=== PATIENT | female | born 1945 | race Caucasian/White ===

== ENCOUNTER 2017-03-26 18:57 | Inpatient (IN) | payer OTHER ==
[~2017-03-26] VITALS: Ht 162.6 cm; Wt 62.6 kg
--- NOTE | 2017-03-26 19:10 | NUR ---
[id number] FROM HOME: HYPERGLYCEMIA, GENERALIZED WEAKNESS, FLU SYMPTOMS, NAD NOTED, VSS, RESP EVEN AND UNLABORED. PT PUT ON MONITOR AND HOSPITAL GOWN. WAITING FOR MD COLIN.
[2017-03-26] MEDS ORDERED: FAMOTIDINE/PF INJ 20 MG/2 ML VIAL IV ONE ×2 (19:30→20:08)
[2017-03-26] MEDS ORDERED: ONDANSETRON HCL/PF 4 MG/2 ML VIAL IV ONE (19:30)
[2017-03-26] MEDS ORDERED: IV NS 0.9% 1,000 ML BAG IV ONE ×3 (19:30→22:00)
[2017-03-26 19:57] LABS: BASOPHILS % (AUTO) 0.2 % (0.0-2.0); EOSINOPHILS % (AUTO) 0.1 % (0.0-6.0); HEMATOCRIT 37 % (33-45); HEMOGLOBIN 12.6 g/dL (11.5-14.8); LYMPHOCYTES # (AUTO) 0.4 /CMM (0.8-4.8); LYMPHOCYTES % (AUTO) 4.1 % (20.0-44.0); MEAN CORPUSCULAR HEMOGLOBIN 29 PG (26.0-33.0); MEAN CORPUSCULAR HGB CONC 34 g/dl (31.0-36.0); MEAN CORPUSCULAR VOLUME 86 fL (82-100); MONOCYTES # (AUTO) 0.3 /CMM (0.1-1.30); MONOCYTES % (AUTO) 3.5 % (2.0-12.0); NEUTROPHILS # (AUTO) 8.9 /CMM (1.8-8.9); NEUTROPHILS % (AUTO) 92.1 % (43.0-81.0); PLATELET COUNT (AUTO) 185 /CMM (150-450); RDW COEFFICIENT OF VARIATION 13.5 (11.5-15.0); WHITE BLOOD COUNT (AUTO) 9.6 K/uL (4.3-11.0)
[2017-03-26] MEDS ORDERED: ONDANSETRON HCL/PF 4 MG/2 ML VIAL ONE (20:08)
[2017-03-26 20:20] LABS: ALANINE AMINOTRANSFERASE 23 U/L (12-78); ALBUMIN 2.7 g/dL (3.4-5.0); ALKALINE PHOSPHATASE 181 U/L (46-116); ASPARTATE AMINOTRANSFERASE 43 U/L (15-37); BILIRUBIN,DIRECT 0.3 mg/dL (0.0-0.2); BILIRUBIN,TOTAL 0.7 mg/dL (0.2-1.0); CALCIUM, SERUM 9.3 mg/dL (8.5-10.1); CARBON DIOXIDE 17 mmol/L (21-32); CHLORIDE 101 mmol/L (98-107); CREATININE 0.8 mg/dL (0.6-1.3); LIPASE 79 U/L (73-393); POTASSIUM 3.3 mmol/L (3.5-5.1); SODIUM SERUM 134 mmol/L (136-145); TOTAL PROTEIN, SERUM 6.9 g/dL (6.4-8.2); UREA NITROGEN, BLOOD 17 mg/dL (7-18)
[2017-03-26 20:34] LABS: TROPONIN I 1.904 ng/mL (0.00-0.056)
[2017-03-26 20:35] LABS: GLUCOSE 363 mg/dL (74-106)
[2017-03-26] MEDS ORDERED: ASPIRIN 325 MG TABLET PO ONE (21:00)
[2017-03-26] MEDS ORDERED: INSULIN REGULAR, HUMAN 100 UNIT/ML 10 ML VIAL SQ ONE (21:00)
[2017-03-26 21:08] LABS: APPEARANCE,URINE Slightly Cloudy (CLEAR); BILIRUBIN,URINE Negative (NEGATIVE); BLOOD, URINE Large Ery/uL (NEGATIVE); COLOR,URINE Yellow (YELLOW); KETONES,URINE >=160 (NEGATIVE); LEUKOCYTE ESTERASE ,URINE Trace (NEGATIVE); NITRITE, URINE Positive (NEGATIVE); PH,URINE 5.5 (5.0-8.0); PROTEIN,URINE 100 mg/dl (NEGATIVE); UGLUCOSE 500 MG/DL mg/dL (NEGATIVE)
[2017-03-26] MEDS ORDERED: INSULIN REGULAR, HUMAN 100 UNIT/ML 10 ML VIAL ONE (21:11)
[2017-03-26] MEDS ORDERED: POTASSIUM CHLORIDE 20 MEQ TAB.PRT.SR PO ONE ×2 (21:11→21:30)
[2017-03-26] MEDS ORDERED: ASPIRIN 325 MG TABLET ONE (21:11)
[2017-03-26] MEDS ORDERED: CEFTRIAXONE 1GM BAG (ER ONLY) 1 GM/50 ML PIGGYBACK IV ONE (21:30)
[2017-03-26 21:42] LABS: BACTERIA,URINE 1+ /HPF (None Seen); SQUAMOUS EPITHELIAL CELL,UR Few /HPF (None Seen); WBC,URINE TOO NUMEROUS TO COUN /HPF (0-3)
[2017-03-26] MEDS ORDERED: IOHEXOL-350 100 ML VIAL IV ONE (21:44)
[2017-03-26] MEDS ORDERED: IV NS 0.9% 250 ML IV ONE (21:44)
--- NOTE | 2017-03-26 21:50 | NUR ---
PATIENT DX N STEMI, ASSIGNED TO TELE 306-2, ACCEPTED BY DR SARAY HOWARD
[2017-03-26] MEDS ORDERED: ACETAMINOPHEN 325 MG TABLET PO PRN (22:00)
[2017-03-26] MEDS ORDERED: MORPHINE SULFATE INJ 2 MG/ML DISP.SYRIN IV PRN (22:00)
[2017-03-26] MEDS ORDERED: ONDANSETRON HCL/PF 4 MG/2 ML VIAL IVP PRN (22:00)
[2017-03-26] MEDS ORDERED: LORAZEPAM INJ 2 MG/ML VIAL IVP PRN (22:00)
[2017-03-26] MEDS ORDERED: INSULIN REGULAR, HUMAN 100 UNIT in IV NS 0.9% 99 ML IV PRN ×2 (22:00)
[2017-03-26 22:32] LABS: ABG BASE EXCESS -7.2 mmol/L; ABG OXYGEN SATURATION 95.2 % (92.0-98.5); ABG PCO2 30.3 mmHg (35.0-45.0); ABG PH 7.367 (7.350-7.450); AaDO2 32.4 mmHg; COHb 0.4 % (0.5-1.5); MetHb 0.3 % (0.0-1.5); O2Hb 94.5 % (94.0-97.0); SITE, ABG Right Radial; VENT MODE, BG ROOM AIR
--- NOTE | 2017-03-26 23:00 | NUR ---
CALLED KRIS FROM ICU, SHE'S UNABLE TO RECEIVED REPORT AT THIS MOMENT. WILL CALL IN 15 MINS.
[2017-03-27] VITALS (23 sets, daily range): BP systolic 93–168; BP diastolic 47–98
--- NOTE | 2017-03-27 | NUR ---
ASSUMED ADMISSION CARE AT THIS TIME. REPORT GIVEN TO KRIS/BRETT.
[2017-03-27] MEDS: ASPIRIN 81 MG TAB.CHEW PO SCH ×2 (01:00→09:19)
[2017-03-27] MEDS: ATORVASTATIN 10 MG TABLET PO SCH ×2 (01:00→22:53)
[2017-03-27 01:58] LABS: CALCIUM, SERUM 8.6 mg/dL (8.5-10.1); CARBON DIOXIDE 19 mmol/L (21-32); CHLORIDE 108 mmol/L (98-107); CREATININE 0.8 mg/dL (0.6-1.3); GLUCOSE 279 mg/dL (74-106); POTASSIUM 4.3 mmol/L (3.5-5.1); SODIUM SERUM 140 mmol/L (136-145); UREA NITROGEN, BLOOD 17 mg/dL (7-18)
[2017-03-27] MEDS ORDERED: LEVOFLOXACIN 750 MG /D5W 150ML 150 ML IV ONE (02:13)
[2017-03-27] MEDS: LEVOFLOXACIN 750 MG /D5W 150ML 150 ML IV SCH ×2 (02:49→22:51)
[2017-03-27] MEDS ORDERED: DEXTROSE 50%-WATER 50 ML DISP.SYRIN IV PRN ×2 (03:00→13:00)
--- NOTE | 2017-03-27 05:30 | NUR ---
SANITATION SUPERVISOR - LAB PHONED W/CRITICAL TROPONIN LEVEL. TROP AT 2.893 & BS AT #333. ADMISSION TROP LEVEL WAS #1.9 & #364 BS. PT.WAS COVERED W/AGGRESSIVE SCALE INSULIN COVERAGE (16 UNITS/SQ). PT.USED BSC. A&OX3, S[place] SPEAKING,BUT UNDERSTANDS LITTLE [place]. NURSE STAFF [facility] USED FOR MOST INSTRUCTIONS. VSS. AFEBRILE. PT.DENIES ANY PAIN AT PRESENT. ORDERS REC'D FROM DR. SO. LOVENOX-PHARMACY DOSING ORDERED. CONT.POC.
[2017-03-27 05:35] LABS: BASOPHILS % (AUTO) 0.1 % (0.0-2.0); EOSINOPHILS # (AUTO) 0.2 /CMM (0.0-0.7); EOSINOPHILS % (AUTO) 1.7 % (0.0-6.0); HEMATOCRIT 37 % (33-45); HEMOGLOBIN 12.6 g/dL (11.5-14.8); LYMPHOCYTES # (AUTO) 0.9 /CMM (0.8-4.8); LYMPHOCYTES % (AUTO) 6.8 % (20.0-44.0); MEAN CORPUSCULAR HEMOGLOBIN 30 PG (26.0-33.0); MEAN CORPUSCULAR HGB CONC 34 g/dl (31.0-36.0); MEAN CORPUSCULAR VOLUME 87 fL (82-100); MONOCYTES # (AUTO) 0.6 /CMM (0.1-1.30); MONOCYTES % (AUTO) 4.8 % (2.0-12.0); NEUTROPHILS # (AUTO) 11.3 /CMM (1.8-8.9); NEUTROPHILS % (AUTO) 86.6 % (43.0-81.0); PLATELET COUNT (AUTO) 187 /CMM (150-450); RDW COEFFICIENT OF VARIATION 13.6 (11.5-15.0); RED BLOOD CELL COUNT(AUTO) 4.25 MIL/uL (4.0-5.2)
[2017-03-27 05:56] LABS: ALANINE AMINOTRANSFERASE 50 U/L (12-78); ALBUMIN 2.5 g/dL (3.4-5.0); ALKALINE PHOSPHATASE 121 U/L (46-116); ASPARTATE AMINOTRANSFERASE 91 U/L (15-37); BILIRUBIN,TOTAL 0.5 mg/dL (0.2-1.0); CALCIUM, SERUM 9.1 mg/dL (8.5-10.1); CARBON DIOXIDE 21 mmol/L (21-32); CHLORIDE 105 mmol/L (98-107); CREATININE 0.9 mg/dL (0.6-1.3); POTASSIUM 4.3 mmol/L (3.5-5.1); SODIUM SERUM 139 mmol/L (136-145); TOTAL PROTEIN, SERUM 6.8 g/dL (6.4-8.2); UREA NITROGEN, BLOOD 15 mg/dL (7-18)
[2017-03-27 06:05] LABS: CREATINE KINASE MB 8.8 ng/mL (0-3.6); INR 1.02 (0.87-1.13); PROTHROMBIN TIME 10.6 SECS (9.5-12.7)
[2017-03-27 06:12] LABS: GLUCOSE 353 mg/dL (74-106); TROPONIN I 2.893 ng/mL (0.00-0.056)
[2017-03-27] MEDS: INSULIN REGULAR, HUMAN 100 UNIT/ML 3 ML VIAL SQ PRN ×2 (06:22→12:02)
[2017-03-27] MEDS: BLOOD SUGAR DIAGNOSTIC 1 EACH STRIP IN SCH ×5 (06:24→22:51)
[2017-03-27] MEDS ORDERED: MORPHINE SULFATE INJ 4 MG/ML DISP.SYRIN IV PRN (08:30)
[2017-03-27] MEDS: PANTOPRAZOLE 40 MG VIAL IV SCH (09:19)
[2017-03-27] MEDS: CARVEDILOL 3.125 MG TABLET PO SCH ×2 (09:20→22:53)
[2017-03-27] MEDS: LISINOPRIL (10MG) 10 MG TABLET PO SCH (09:20)
[2017-03-27] MEDS ORDERED: AMLO10TA4 PO (09:42)
[2017-03-27] MEDS ORDERED: SITA1TAB2 PO (09:42)
[2017-03-27] MEDS ORDERED: ATOR40TA PO (09:42)
[2017-03-27] MEDS ORDERED: GLIM1TAB2 PO (09:42)
[2017-03-27] MEDS ORDERED: INSU300I SQ (09:42)
[2017-03-27] MEDS ORDERED: DONE10TA44 PO (09:42)
[2017-03-27] MEDS ORDERED: ASPI-1169 PO (09:42)
[2017-03-27] MEDS ORDERED: FENO160T PO (09:42)
[2017-03-27] MEDS ORDERED: OXYB10TA PO (09:42)
[2017-03-27] MEDS ORDERED: MEMA10TA PO (09:42)
[2017-03-27] MEDS ORDERED: PANT40TA2 PO (09:42)
[2017-03-27] MEDS ORDERED: VALS1TAB4 PO (09:42)
[2017-03-27] MEDS ORDERED: BLOO-697 IN (09:43)
[2017-03-27] MEDS ORDERED: INSU100V30 SQ (09:43)
[2017-03-27] MEDS: ENOXAPARIN SODIUM 60 MG/0.6 ML DISP.SYRIN SQ SCH ×2 (10:16→21:00)
[2017-03-27 12:09] LABS: B-TYPE NATRIURETIC PEPTIDE 17806 PG/ML (0-125); CALCIUM, SERUM 8.9 mg/dL (8.5-10.1); CARBON DIOXIDE 21 mmol/L (21-32); CHLORIDE 106 mmol/L (98-107); CREATININE 0.9 mg/dL (0.6-1.3); POTASSIUM 3.9 mmol/L (3.5-5.1); SODIUM SERUM 137 mmol/L (136-145); UREA NITROGEN, BLOOD 15 mg/dL (7-18)
[2017-03-27 12:13] LABS: GLUCOSE 360 mg/dL (74-106)
[2017-03-27] MEDS ORDERED: *INSULIN REGULAR(HUMULIN R)HUM 100 UNIT/ML VIAL SQ PRN (13:00)
[2017-03-27] MEDS ORDERED: INSULIN REGULAR, HUMAN 100 UNIT/ML 3 ML VIAL SQ PRN (13:00)
--- NOTE | 2017-03-27 13:00 | NUR ---
RN NOTE ACCHU CHECK SCHEDULED FOR 1300 WAS NOT DONE BECAUSE PREVIOUS ACCHU CHECK WAS CHECKED AT 1200 AND COVERED BY INSULIN, AND SCHEDULING AND FREQUENCY OF ACCHUCHECK WAS CHANGED. WILL MONITOR PT CLOSELY.
--- NOTE | 2017-03-27 14:30 | NUR ---
RN NOTE REPORT GIVEN TO ALEC FOR CAT.
--- NOTE | 2017-03-27 15:29 | NUR ---
MARGUERITE BROWER AND OBTAINED ORDER FOR NORCO PRN PT C/O PAIN.
--- NOTE | 2017-03-27 15:30 | NUR ---
RN NOTE SPOKE WITH INEZ FROM AMBULANCE [phone] THAT AMBULANCE IS ARRANGED TO [facility] PT TOMORROW 03/28/17 AT 1030 AM FOR [facility] PRESS CARDIAC CATH. NOTIFIED JUAN JOSE CARBAJAL AND ALEC WEST.
[2017-03-27] MEDS ORDERED: HYDROCODONE/APAP 5/325MG 1 EACH TABLET PO ONE (15:44)
[2017-03-27] MEDS ORDERED: HYDROCODONE/APAP 5/325MG 1 EACH TABLET PO PRN (16:00)
[2017-03-27] MEDS: METFORMIN 500 MG TABLET PO SCH (17:02)
[2017-03-27] MEDS ORDERED: INSULIN DETEMIR 100 UNIT/ML CARTRIDGE SQ SCH (18:00)
[2017-03-27] MEDS ORDERED: PANTOPRAZOLE 40 MG TABLET.DR PO SCH (18:00)
[2017-03-27] MEDS ORDERED: DONEPEZIL 5 MG TABLET PO SCH (18:00)
[2017-03-27] MEDS ORDERED: ATORVASTATIN 40 MG TABLET PO SCH (18:00)
[2017-03-27] MEDS ORDERED: AMLODIPINE BESYLATE 10 MG TABLET PO SCH (18:00)
--- NOTE | 2017-03-27 18:16 | NUR ---
MINE FOREMAN NOTES RECVD PT FROM [facility] BIN OPERATOR. DOWNGRADED. 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 AAO2 DEMENTIA. DTR AT BS. ALL NEEDS ATTENDED TO. IV PATENT AND INTACT. TELE SR 85. RESTING COMFORTABLY. CALL LIGHT IN REACH. WILL CONT TO MONITOR. BED IN LOW LOCKED POSITION. SIDERAILS UP X 2.
--- NOTE | 2017-03-27 19:55 | NUR ---
RN OPENING NOTES RECEIVED REPORT FROM BRENTON RN, ALEC. FOUND Pt AWAKE, RESTING IN BED. NO S/S OF ACUTE DISTRESS OR SOB NOTED. FAMILY VISITING AT BEDSIDE. Pt IS A/OX3, VERBAL, ABLE TO MAKE NEEDS KNOWN. ON TELE MONITOR. IV ACCESS ON RAC #20G, SL. Pt WILL BE TRANSFERRED TMRRW @1030AM TO [facility] FOR CARTOGRAPHIC DESIGNER. WILL BE NPO STARTING AT [facility]. SAFETY MEASURES IN PLACE. BED LOW, LOCKED, HOB ELEVATED, SIDE RAILS UP, CALL LIGHT AND BEDSIDE TABLE WITHIN REACH. WILL CONTINUE TO MONITOR Pt THROUGHOUT THE NIGHT FOR SAFETY.
--- NOTE | 2017-03-27 22:15 | NUR ---
ACCUCHECK BG 208. HELD INSULIN DUE TO NPO STATUS STARTING AT [place] SUNDAY. AWARE.
--- NOTE | 2017-03-27 23:45 | NUR ---
RN NOTES INFORMED DR SO OF Pt's PROCEDURE FOR TOMORROW. OK TO HOLD DAVID PER .
[2017-03-28] VITALS: BP 107/65
[2017-03-28 04:00] VITALS: BP 103/60
--- NOTE | 2017-03-28 06:45 | NUR ---
AC BG 167. NO INSULIN COVERAGE GIVEN DUE TO NPO STATUS.
--- NOTE | 2017-03-28 06:50 | NUR ---
RN CLOSING NOTES NO SIGNIFICANT CHANGES IN Pt's CONDITION. Pt REMAINS STABLE AT THIS TIME. NO S/S OF ACUTE DISTRESS OR SOB NOTED DURING THE NIGHT. TELE READING SR 87. Pt WILL BE PICKED UP AT 1030AM TO BE TRANSFERRED TO [facility] FOR LUMBER TRIPPER TODAY. ALL NEEDS MET AND ATTENDED TO. SAFETY MEASURES IN PLACE. WILL ENDORSE TO DAYSHIFT RN FOR Pt's CAT.
[2017-03-28 06:56] LABS: BASOPHILS % (AUTO) 0.2 % (0.0-2.0); EOSINOPHILS # (AUTO) 0.2 /CMM (0.0-0.7); EOSINOPHILS % (AUTO) 1.9 % (0.0-6.0); HEMATOCRIT 34 % (33-45); HEMOGLOBIN 11.5 g/dL (11.5-14.8); LYMPHOCYTES # (AUTO) 1.9 /CMM (0.8-4.8); LYMPHOCYTES % (AUTO) 17.1 % (20.0-44.0); MEAN CORPUSCULAR HEMOGLOBIN 30 PG (26.0-33.0); MEAN CORPUSCULAR HGB CONC 34 g/dl (31.0-36.0); MEAN CORPUSCULAR VOLUME 88 fL (82-100); MONOCYTES # (AUTO) 0.9 /CMM (0.1-1.30); MONOCYTES % (AUTO) 8.3 % (2.0-12.0); NEUTROPHILS % (AUTO) 72.5 % (43.0-81.0); PLATELET COUNT (AUTO) 176 /CMM (150-450); RDW COEFFICIENT OF VARIATION 14.7 (11.5-15.0); RED BLOOD CELL COUNT(AUTO) 3.84 MIL/uL (4.0-5.2); WHITE BLOOD COUNT (AUTO) 11.1 K/uL (4.3-11.0)
[2017-03-28] MEDS: BLOOD SUGAR DIAGNOSTIC 1 EACH STRIP IN SCH (07:11)
[2017-03-28 07:12] LABS: CALCIUM, SERUM 8.9 mg/dL (8.5-10.1); CARBON DIOXIDE 22 mmol/L (21-32); CHLORIDE 107 mmol/L (98-107); CREATININE 0.6 mg/dL (0.6-1.3); GLUCOSE 177 mg/dL (74-106); MAGNESIUM 1.7 mg/dL (1.8-2.4); PHOSPHORUS 1.9 mg/dL (2.5-4.9); POTASSIUM 3.7 mmol/L (3.5-5.1); SODIUM SERUM 137 mmol/L (136-145); UREA NITROGEN, BLOOD 15 mg/dL (7-18)
[2017-03-28 07:15] LABS: INR 0.95 (0.87-1.13); PROTHROMBIN TIME 9.9 SECS (9.5-12.7)
--- NOTE | 2017-03-28 07:30 | NUR ---
RN OPENING NOTES RECEIVED PT. PT STABLE AND RESTING IN BED. NO S/S OF RESP DISTRESS/SOB. PT IS ON 2L O2 VIA NC. PT DOES NOT APPEAR TO BE IN PAIN. PER POLITICAL ADVISOR REPORT, PT TO BE TRANSFERRED TO [facility] FOR CARDIAC CUSTOMER SERVICE ADVOCATE PROCEDURE. NET MAKER TIME SCHEDULED FOR 1030, PROCEDURE SCHEDULED FOR 1330. SAFETY MEASURES IN PLACE, CALL LIGHT WITHIN REACH. WILL CONTINUE TO MONITOR.
[2017-03-28 08:00] VITALS: BP 118/80
[2017-03-28] MEDS: LISINOPRIL (10MG) 10 MG TABLET PO SCH (09:00)
[2017-03-28] MEDS ORDERED: FENOFIBRATE NANOCRYS (145 MG) 145 MG TABLET PO SCH (09:00)
[2017-03-28] MEDS: METFORMIN 500 MG TABLET PO SCH (09:00)
[2017-03-28] MEDS ORDERED: GLIMEPIRIDE 1 MG TABLET PO SCH (09:00)
[2017-03-28] MEDS ORDERED: ASPIRIN 81 MG TAB.CHEW PO SCH (09:00)
[2017-03-28] MEDS ORDERED: OXYBUTYNIN CHLORIDE 5 MG TABLET PO SCH (09:00)
[2017-03-28] MEDS ORDERED: LINAGLIPTIN 5 MG TABLET PO SCH (09:00)
[2017-03-28] MEDS: ASPIRIN 81 MG TAB.CHEW PO SCH (09:00)
[2017-03-28] MEDS: PANTOPRAZOLE 40 MG VIAL IV SCH (09:00)
[2017-03-28] MEDS ORDERED: VALSARTAN 80 MG TABLET PO SCH (09:00)
[2017-03-28] MEDS: CARVEDILOL 3.125 MG TABLET PO SCH (09:00)
[2017-03-28] MEDS ORDERED: MEMANTINE HCL 5 MG TABLET PO SCH (09:00)
[2017-03-28] MEDS ORDERED: HYDROCHLOROTHIAZIDE 25 MG TABLET PO SCH (09:00)
--- NOTE | 2017-03-28 10:58 | NUR ---
DISCHARGE NOTE PT DISCHARGED/TRANSFER TO [facility] FOR CARDIAC CATH PROCEDURE. VSS, NO S/S OF RESP DISTRESS OR SOB. CALLED [facility] AND GAVE REPORT TO ASA RN AT [facility]. RIGHT AC IV ACCESS REMOVED DUE TO INFILTRATION. ALL DISCHARGE PAPERWORK REVIEWED WITH PT AND FAMILY. DISCHARGE INSTRUCTIONS AND BELONGINGS LIST SIGNED BY PT, COPIED AND PLACED IN CHART. PT PICKED UP BY [facility] AND TRANSFERRED VIA AMBULANCE.
[2017-03-28] MEDS ORDERED: Magnesium 1GM/D5W 100ML PREMIX 100 ML IV SCH (11:18)
[2017-03-28] MEDS ORDERED: K PHOS NEUTRAL 250 MG TABLET PO ONE (16:30)
[2017-03-28] MEDS ORDERED: LEVOFLOXACIN 250 MG /D5W 50 ML 250 MG in PREMIX 1 EA IV SCH ×3 (21:00→23:00)
== END 2017-03-28 10:30 | disposition home or self-care (01) | DRG 871 ==
LOC: ER 18:59 → ICU 22:50 → TELE 03-27 16:14
PROVIDERS: ADMIT Internal Medicine; ATTEND Internal Medicine
DX: A41.9 Sepsis, unspecified organism (principal); I21.4 Non-ST elevation (NSTEMI) myocardial infarction; E11.00 Type 2 diabetes mellitus with hyperosmolarity without nonketotic hyperglycemic-hyperosmolar coma (NKHHC); G93.41 Metabolic encephalopathy; I50.23 Acute on chronic systolic (congestive) heart failure; R53.2 Functional quadriplegia; E44.0 Moderate protein-calorie malnutrition; N39.0 Urinary tract infection, site not specified; Z95.1 Presence of aortocoronary bypass graft; I25.10 Atherosclerotic heart disease of native coronary artery without angina pectoris; Z86.73 Personal history of transient ischemic attack (TIA), and cerebral infarction without residual deficits; Z79.82 Long term (current) use of aspirin; Z79.84 Long term (current) use of oral hypoglycemic drugs; Z79.899 Other long term (current) drug therapy; I10 Essential (primary) hypertension; I25.5 Ischemic cardiomyopathy; E87.6 Hypokalemia
CPT/HCPCS: 36415; 36600; 70450-TC; 71045-TC; 80048-TC; 80053-TC; 80076-TC; 81000-TC; 82272-TC; 82553-TC; 82803-TC; 82962-TC; 83605-TC; 83690-TC; 83735-TC; 83880; 84100-TC; 84484-TC; 85025-TC; 85385-TC; 85610-TC; 85730-TC; 87040-TC; 87081-TC; 87086-TC; 87186-TC; 93307-TC; A4216; A4606; C9113; J0696; J1650; J1815; J1956; J2060; J2405; J3490; J7030; J7050; Q9967; Z7610